=== PATIENT | male | born 2005 | race Caucasian/White ===

== ENCOUNTER 2024-04-13 17:29 | Emergency (ER) | payer BC, SELFPAY ==
[2024-04-13 17:33] VITALS: BP 100/62
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
[2024-04-13] MEDS: HALDOL 5 MG IM ×2 (18:45→18:50)
[2024-04-13] MEDS: ATIVAN 2 MG IM (18:45)
[2024-04-13 19:24] VITALS: BP 130/94
[2024-04-13 23:00] VITALS: BP 142/85
[2024-04-14 04:30] VITALS: BP 130/78
[2024-04-14 04:58] LABS: % Basophils 0.3 % (0-2); % Eosinophils 1.2 % (0-6); % Immature Granulocytes 0.3 % (0-0.5); % Lymphocytes 34.9 % (20.5-51.1); % Monocytes 11.2 % (1.7-9.3); % Neutrophils 52.1 % (42.2-75.2); Absolute Eosinophils 0.1 10^3/uL (0-0.7); Absolute Lymphocytes 2.4 10^3/uL (1.2-3.4); Absolute Monocytes 0.8 10^3/uL (0.1-0.6); Absolute Neutrophils 3.5 10^3/uL (1.4-6.5); Hematocrit 43.9 % (39.0-52.0); Hemoglobin 16.2 g/dL (13.0-18.0); Mean Corp Hgb Conc. 36.9 g/dL (33.0-37.0); Mean Corpuscular Hgb 30.9 pg (27.0-31.0); Mean Corpuscular Volume 83.6 fL (80.0-94.0); Mean Platelet Volume 9.6 fL (7.4-10.4); Nucleated Red Blood Cells % 0 % (-); Platelet Count 267 10^3/uL (130-400); Red Blood Cell Count 5.25 10^6/uL (4.70-6.10); Red Cell Dist. Width 12.1 % (11.5-14.5); White Blood Cell Count 6.8 10^3/uL (4.8-10.8)
[2024-04-14 05:10] LABS: ALT (SGPT) 56 U/L (0-50); AST (SGOT) 52 U/L (17-59); Acetaminophen < 10 ug/ml (10-30); Albumin 4.4 g/dl (3.5-5.0); Alkaline Phosphatase 85 U/L (38-126); Blood Urea Nitrogen 12 mg/dl (9-20); Calcium 9.6 mg/dl (8.4-10.2); Carbon Dioxide 26 mmol/L (22-30); Chloride 105 mmol/L (98-107); Glucose 83 mg/dl (70-99); Salicylate < 1.0 mg/dl (2.0-20.0); Sodium 140 mmol/L (135-145); Total Bilirubin 1.1 mg/dl (0.2-1.3); Total Protein 6.4 g/dl (6.3-8.2); eGFR > 60.00
[2024-04-14 05:16] LABS: Alcohol None Detected
--- NOTE | 2024-04-14 07:11 | ED.CRISIS ---
ED Crisis Note
ED Crisis Note
Subjective:
19-year-old male with history of bipolar disorder with psychotic features presented to the emergency department yesterday, 04/13 with aggressive behavior and concern for acute psychosis. Patient has not been taking his medications. Patient placed
on 302, seen by crisis with 302 upheld.
Objective:
Patient had been aggressive upon arrival to the emergency department, threatening staff. Vital signs stable in the emergency department. Remains in restraints.
Assessment/Plan:
19-year-old male with history of bipolar disorder with concern for acute abhinav and psychosis. Vital signs stable.
Patient under 302, in restraints. Patient has been cooperative, hemodynamically stable. Pending placement for inpatient psychiatric treatment.
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
[2024-04-14] MEDS: ATIVAN 1 MG PO (15:24)
[2024-04-14] MEDS: ZYPREXA 5 MG PO ×2 (17:54→22:18)
[2024-04-15 01:38] LABS: Amphetamines Negative (Negative); Barbiturates Negative (Negative); Benzodiazepines Positive (Negative); Buprenorphine Negative (Negative); Cocaine Negative (Negative); Methadone Negative (Negative); Methamphetamines Negative (Negative); Opiates Negative (Negative)
[2024-04-15 01:39] LABS: Marijuana Negative (Negative); Phencyclidine Negative (Negative); Tricyclic Antidepressants Negative (Negative)
[2024-04-15 01:47] LABS: Fentanyl, Urine Negative (Negative)
[2024-04-15] MEDS: ATIVAN 1 MG PO (07:16)
[2024-04-15] MEDS: ZYPREXA 5 MG PO (07:16)
[2024-04-15 07:27] VITALS: BP 166/104
[2024-04-15] MEDS: ATIVAN 2 MG PO (11:41)
== END 2024-04-15 11:47 ==
LOC: EMR 17:29
PROVIDERS: CONSULT PHYSICIAN Psychiatry & Neurology Psychiatry; EMERGENCY PHYSICIAN Emergency Medicine
DX: F31.9 Bipolar disorder, unspecified (principal); F29 Unspecified psychosis not due to a substance or known physiological condition; Z91.148 Patient's other noncompliance with medication regimen for other reason
CPT/HCPCS: 99285; 96372; 80053; 80143; 80179; 80306; 80307; 82077; 85025